=== PATIENT | male | born 1985 | race Two or more races ===

== ENCOUNTER 2018-05-02 11:58 | Inpatient (IN) | payer OTHER, SELFPAY ==
[~2018-05-02] VITALS: Ht 160 cm; Wt 70.0 kg
[2018-05-02] MEDS ORDERED: SODIUM CHLORIDE FLUSH 10ML SYR IVF ONE (12:30)
[2018-05-02] MEDS ORDERED: SODIUM CHLORIDE 0.9% 1,000 ML IV ONE (13:04)
[2018-05-02] MEDS ORDERED: MORPHINE SULFATE 4 MG/ML, 1ML ONE ×2 (13:05→14:46)
[2018-05-02 13:16] LABS: MEAN CORPUSCULAR VOLUME 88.3 fL (81-97); MEAN PLATELET VOLUME 9.4 fL (7.4-10.4); PLATELET COUNT 253 x10^3/uL (130-400); RED BLOOD COUNT 5.99 x10^6/uL (4.38-5.82); RED CELL DISTRIBUTION WIDTH 12.7 % (9.4-14.8)
[2018-05-02] MEDS: MORPHINE SULFATE 4 MG/ML, 1ML IVPush PRN ×2 (13:22→14:51)
[2018-05-02 13:24] LABS: ALANINE AMINOTRANSFERASE 32 U/L (12-78); ALBUMIN 3.9 g/dL (3.4-5.0); ANION GAP 7 mmol/L (5-15); CALCIUM 9.2 mg/dL (8.5-10.1); CHLORIDE 104 mmol/L (98-107); CREATININE 1.24 mg/dL (0.7-1.3)
[2018-05-02 13:26] LABS: ALKALINE PHOSPHATASE 132 U/L (45-117); BILIRUBIN,TOTAL 1.2 mg/dL (0.2-1.0); TOTAL PROTEIN 8.5 g/dL (6.4-8.2)
[2018-05-02] MEDS ORDERED: SODIUM CHLORIDE 0.9% 1,000ML IVBOLUS ONE (13:30)
[2018-05-02 13:43] LABS: MD YES
[2018-05-02 13:46] LABS: BAND#(MANUAL) 0.66 x10^3/uL; BANDS%(MANUAL) 3 % (0-7); LYMPH#(MANUAL) 0.88 x10^3/uL (1-3.4); LYMPHS% (MANUAL) 4 % (22-44); MONOS#(MANUAL) 0.66 x10^3/uL (0.3-2.7); MONOS% (MANUAL) 3 % (2-9); SEG#(MANUAL) 19.71 x10^3/uL (1.8-6.8); SEGS% (MANUAL) 90 % (42-75)
[2018-05-02 13:47] LABS: <PLATELET ESTIMATE> ADEQUATE; <PLT MORPHOLOGY> NORMAL PLT MORPH; <RBC MORPHOLOGY> NORMAL
[2018-05-02 13:52] LABS: CULTURE INDICATED? YES; MICROSCOPIC INDICATED
[2018-05-02] MEDS ORDERED: METRONIDAZOLE PMX 500MG/100ML 100 ML ONE (15:21)
[2018-05-02] MEDS ORDERED: CEFTRIAXONE PMX 1GM/50ML 50 ML ONE (15:21)
[2018-05-02] MEDS ORDERED: METRONIDAZOLE PMX 500MG/100ML 100 ML IVPB ONE (15:30)
[2018-05-02] MEDS ORDERED: CEFTRIAXONE 1,000 MG in SODIUM CHLORIDE 0.9% 50 ML IVPB ONE (15:30)
[2018-05-02] MEDS ORDERED: MORPHINE SULFATE 4 MG/ML, 1ML IVPush PRN (15:30)
[2018-05-02] MEDS ORDERED: ACETAMINOPHEN 325 MG TABLET PO PRN (16:30)
[2018-05-02] MEDS ORDERED: ONDANSETRON 2MG/ML, 2ML IVPush PRN (16:30)
[2018-05-02] MEDS ORDERED: ONDANSETRON ODT 4 MG PO PRN (16:30)
[2018-05-02] MEDS ORDERED: MAGNESIUM SULFATE PMX 2GM/50ML 50 ML IV ONE (17:00)
[2018-05-02 17:03] LABS: THYROID STIMULATING HORMONE 0.775 mIU/L (0.358-3.740)
[2018-05-02] MEDS: SODIUM CHLORIDE 0.9% 1,000 ML IV SCH (19:18)
[2018-05-02] MEDS: morphine SULFATE 10 MG/ML, 1ML IVPush PRN (19:19)
[2018-05-02 19:48] VITALS: BP 101/66
[2018-05-02 22:18] VITALS: BP 103/66
[2018-05-02] MEDS: DOCUSATE 100 MG CAPSULE PO SCH (22:22)
[2018-05-02] MEDS: METRONIDAZOLE PMX 500MG/100ML 100 ML IV SCH (23:59)
[2018-05-03 02:00] VITALS: BP 101/63
[2018-05-03] MEDS: SODIUM CHLORIDE 0.9% 1,000 ML IV SCH ×3 (04:16→16:45)
[2018-05-03 06:39] LABS: MEAN CORPUSCULAR HEMOGLOBIN 30.4 pg (27.5-34.5); MEAN CORPUSCULAR HGB CONC 34.2 g/dL (33.2-36.2); MEAN CORPUSCULAR VOLUME 89.1 fL (81-97); MEAN PLATELET VOLUME 9.4 fL (7.4-10.4); PLATELET COUNT 216 x10^3/uL (130-400); RED BLOOD COUNT 5.11 x10^6/uL (4.38-5.82); RED CELL DISTRIBUTION WIDTH 13.2 % (9.4-14.8)
[2018-05-03 06:51] LABS: ALBUMIN 2.9 g/dL (3.4-5.0); ANION GAP 9 mmol/L (5-15); CALCIUM 8.7 mg/dL (8.5-10.1); CHLORIDE 107 mmol/L (98-107)
[2018-05-03 06:55] LABS: ALANINE AMINOTRANSFERASE 22 U/L (12-78); ALKALINE PHOSPHATASE 97 U/L (45-117); BILIRUBIN,TOTAL 1.6 mg/dL (0.2-1.0); CREATININE 0.96 mg/dL (0.7-1.3); TOTAL PROTEIN 6.6 g/dL (6.4-8.2)
[2018-05-03 07:01] LABS: BASOPHILS # (AUTO) 0.02 x10^3/uL (0-0.1); BASOPHILS % (AUTO) 0 % (0-1); EOSINOPHILS # (AUTO) 0.04 x10^3/uL (0-0.4); EOSINOPHILS % (AUTO) 0 % (1-7); LYMPHOCYTES # (AUTO) 1.76 x10^3/uL (1-3.4); LYMPHOCYTES % (AUTO) 11 % (22-44); MD NO; MONOCYTES # (AUTO) 0.87 x10^3/uL (0.2-0.8); MONOCYTES % (AUTO) 5 % (2-9); NEUTROPHILS # (AUTO) 13.52 x10^3/uL (1.8-6.8); NEUTROPHILS % (AUTO) 83 % (42-75)
[2018-05-03 07:55] LABS: CRYPTOSPORIDIUM ANTIGEN Negative (Negative)
[2018-05-03 08:30] VITALS: BP 108/69
[2018-05-03] MEDS: DOCUSATE 100 MG CAPSULE PO SCH ×2 (09:43→21:00)
[2018-05-03] MEDS: morphine SULFATE 10 MG/ML, 1ML IVPush PRN ×3 (09:43→23:21)
[2018-05-03] MEDS: METRONIDAZOLE PMX 500MG/100ML 100 ML IV SCH ×2 (09:43→16:44)
[2018-05-03] MEDS: PANTOPRAZOLE 40 MG IV IVPush SCH (09:43)
[2018-05-03 14:30] VITALS: BP 109/66
[2018-05-03] MEDS: ENOXAPARIN 40 MG/0.4 ML SQ SCH (15:19)
[2018-05-03] MEDS ORDERED: CEFTRIAXONE 1,000 MG in SODIUM CHLORIDE 0.9% 50 ML IV SCH (15:30)
[2018-05-03] MEDS: CEFTRIAXONE 1,000 MG in SODIUM CHLORIDE 0.9% 50 ML IV SCH (18:51)
[2018-05-03 20:00] VITALS: BP 115/75
[2018-05-04] MEDS: METRONIDAZOLE PMX 500MG/100ML 100 ML IV SCH ×3 (01:04→16:32)
[2018-05-04] MEDS: SODIUM CHLORIDE 0.9% 1,000 ML IV SCH ×3 (01:05→16:32)
[2018-05-04 01:09] VITALS: BP 121/71
[2018-05-04 04:59] LABS: ALBUMIN 2.7 g/dL (3.4-5.0); ANION GAP 6 mmol/L (5-15); BASOPHILS # (AUTO) 0.03 x10^3/uL (0-0.1); BASOPHILS % (AUTO) 0 % (0-1); CALCIUM 8.4 mg/dL (8.5-10.1); CHLORIDE 107 mmol/L (98-107); EOSINOPHILS # (AUTO) 0.06 x10^3/uL (0-0.4); EOSINOPHILS % (AUTO) 0 % (1-7); LYMPHOCYTES # (AUTO) 1.51 x10^3/uL (1-3.4); LYMPHOCYTES % (AUTO) 10 % (22-44); MD NO; MEAN CORPUSCULAR HEMOGLOBIN 30.6 pg (27.5-34.5); MEAN CORPUSCULAR HGB CONC 34.3 g/dL (33.2-36.2); MEAN CORPUSCULAR VOLUME 89.2 fL (81-97); MEAN PLATELET VOLUME 9.5 fL (7.4-10.4); MONOCYTES # (AUTO) 0.89 x10^3/uL (0.2-0.8); MONOCYTES % (AUTO) 6 % (2-9); NEUTROPHILS # (AUTO) 12.46 x10^3/uL (1.8-6.8); NEUTROPHILS % (AUTO) 83 % (42-75); PLATELET COUNT 218 x10^3/uL (130-400); RED CELL DISTRIBUTION WIDTH 12.8 % (9.4-14.8)
[2018-05-04 05:03] LABS: ALANINE AMINOTRANSFERASE 16 U/L (12-78); ALKALINE PHOSPHATASE 85 U/L (45-117); BILIRUBIN,TOTAL 0.9 mg/dL (0.2-1.0); CREATININE 0.89 mg/dL (0.7-1.3); TOTAL PROTEIN 6.6 g/dL (6.4-8.2)
[2018-05-04 05:30] LABS: HEMOGLOBIN A1C 5.4 % (4.2-6.3)
[2018-05-04] MEDS: PANTOPRAZOLE 40 MG IV IVPush SCH (08:18)
[2018-05-04] MEDS: DOCUSATE 100 MG CAPSULE PO SCH ×2 (08:19→19:34)
[2018-05-04 08:30] VITALS: BP 107/69
[2018-05-04 09:43] LABS: CLOSTRIDIUM DIFFICILE ANTIGEN NEGATIVE; CLOSTRIDIUM DIFFICILE TOXIN NEGATIVE (Negative)
[2018-05-04 14:30] VITALS: BP 109/63
[2018-05-04] MEDS: HYDROcodone/APAP 5/325 TABLET PO PRN ×3 (14:53→23:18)
[2018-05-04] MEDS: ENOXAPARIN 40 MG/0.4 ML SQ SCH (14:54)
[2018-05-04] MEDS: CEFTRIAXONE 1,000 MG in SODIUM CHLORIDE 0.9% 50 ML IV SCH (18:45)
[2018-05-04 19:35] VITALS: BP 117/73
[2018-05-05] MEDS: METRONIDAZOLE PMX 500MG/100ML 100 ML IV SCH (00:22)
[2018-05-05] MEDS: SODIUM CHLORIDE 0.9% 1,000 ML IV SCH (00:25)
[2018-05-05 02:30] VITALS: BP 106/68
[2018-05-05 05:23] LABS: BASOPHILS # (AUTO) 0.01 x10^3/uL (0-0.1); BASOPHILS % (AUTO) 0 % (0-1); EOSINOPHILS # (AUTO) 0.11 x10^3/uL (0-0.4); EOSINOPHILS % (AUTO) 1 % (1-7); LYMPHOCYTES # (AUTO) 1.52 x10^3/uL (1-3.4); LYMPHOCYTES % (AUTO) 11 % (22-44); MD NO; MEAN CORPUSCULAR HEMOGLOBIN 30.8 pg (27.5-34.5); MEAN CORPUSCULAR HGB CONC 34.9 g/dL (33.2-36.2); MEAN CORPUSCULAR VOLUME 88.3 fL (81-97); MEAN PLATELET VOLUME 8.9 fL (7.4-10.4); MONOCYTES # (AUTO) 0.72 x10^3/uL (0.2-0.8); MONOCYTES % (AUTO) 5 % (2-9); NEUTROPHILS # (AUTO) 11.51 x10^3/uL (1.8-6.8); NEUTROPHILS % (AUTO) 83 % (42-75); PLATELET COUNT 238 x10^3/uL (130-400); RED BLOOD COUNT 4.66 x10^6/uL (4.38-5.82); RED CELL DISTRIBUTION WIDTH 12.8 % (9.4-14.8)
[2018-05-05 05:26] LABS: ALBUMIN 2.4 g/dL (3.4-5.0); ANION GAP 6 mmol/L (5-15); CALCIUM 8.5 mg/dL (8.5-10.1); CHLORIDE 108 mmol/L (98-107)
[2018-05-05 06:50] VITALS: BP 115/74
[2018-05-05] MEDS ORDERED: metroNIDAZOLE 500 MG TABLET PO SCH (08:30)
[2018-05-05] MEDS: HYDROcodone/APAP 5/325 TABLET PO PRN ×2 (08:51→13:25)
[2018-05-05] MEDS: DOCUSATE 100 MG CAPSULE PO SCH (08:54)
[2018-05-05] MEDS ORDERED: LACTOBACILLUS CHEW TABLET PO SCH (09:00)
[2018-05-05] MEDS ORDERED: CIPROFLOXACIN 500 MG TABLET PO SCH (09:00)
[2018-05-05 12:36] VITALS: BP 124/80
[2018-05-05] MEDS ORDERED: CIPR500T87 PO (12:51)
[2018-05-05] MEDS ORDERED: ACID1TAB7 PO (12:51)
[2018-05-05] MEDS ORDERED: METR500T PO (12:51)
[2018-05-05] MEDS ORDERED: ACET325T14 PO (12:51)
[2018-05-05] MEDS ORDERED: SODIUM CHLORIDE 0.9% 1,000 ML IV SCH (16:24)
== END 2018-05-05 14:26 | disposition home or self-care (01) | DRG 872 ==
LOC: ED 14:47 → EDIP 15:41 → 3NE 18:09
PROVIDERS: ADMIT Internal Medicine; ATTEND Hospitalist
DX: A41.9 Sepsis, unspecified organism (principal); K57.20 Diverticulitis of large intestine with perforation and abscess without bleeding; E86.0 Dehydration; G47.00 Insomnia, unspecified; K52.9 Noninfective gastroenteritis and colitis, unspecified; K59.00 Constipation, unspecified; N50.819 Testicular pain, unspecified; Z83.3 Family history of diabetes mellitus; Z90.49 Acquired absence of other specified parts of digestive tract
CPT/HCPCS: 36415; 74177; 80048; 80053; 81001; 82040; 83036; 83605; 83690; 83735; 84100; 84443; 85025; 87040; 87046; 87086; 87324; 87328; 87329; 87427; 94660; 96361; 96374; 96375; 96376; 99285; G0378; J0696; J1650; C9113; J2270; J3475; J7030